=== PATIENT | female | born 2000 | race Caucasian/White ===

== ENCOUNTER 2024-01-19 13:58 | Emergency (ER) | payer OTHER, SELFPAY ==
[2024-01-19 14:01] VITALS: BP 120/86
--- NOTE | 2024-01-19 14:39 | ED.GENMED ---
History of Present Illness
General
Chief Complaint: Abdominal Symptoms
Source: patient, records and family
Exam Limitations: none
Time Seen by Provider: 01/19/24 14:20
Nursing documentation reviewed up to this point in time: agreed with
Travel History
Have you had any contact with someone who has COVID-19?: No
Do you have any symptoms of coronavirus? Fever > 100 degrees, chills, cough, shortness of breath, sore throat, loss of taste or smell, muscle aches, or headache?: No
History of Present Illness
History of Present Illness:
23-year-old female presents with nausea vomiting without last evening has some vodka, woke up on the over dry heaving and vomited every 10 minutes since then, similar episodes in the past does not get much relief with Zofran usually gets Compazine
minimal abdominal cramping no blood in her vomit, denies has had ovarian cyst before, smokes marijuana states this does not cause any trouble for her
Past History
Past History
ED Past Medical History: Psychiatric (A/D), Other (Peptic ulcer, eating disorder) and Other (PCOS)
ED Past Surgical History: Gynecological (Ovarian cyst)
Social History
Tobacco: Vaping
Alcohol: Occasional
Drug: Marijuana
Personal: Single
Living: other (College)
Employment: Employed
Review of Systems
Review of Systems
All Other Systems: Not applicable
Constitutional: Denies fever or fatigue
Respiratory: Reports no symptoms
Cardiac: Reports no symptoms
ABD/GI: Reports abdominal pain, nausea and vomiting
Phy Exam
Physical Exam
Physical Exam:
Physical Exam
General: 23female vomiting
Neck: Dry lips
Heart: Tachycardia
Lungs: no acute respiratory distress. clear bilaterally
Abdomen: Soft mild epigastric tenderness no guarding or
Neuro: alert and oriented. no focal neurological deficits
Skin: no rash
Psychiatric: well kept. interactive and cooperative
Extremities: no edema.
Course
Orders/Labs/Results
Orders:
Orders
01/19/24 14:29
Diphenhydramine [Benadryl] 25 mg IV NOW STA
Pantoprazole [Protonix IV] 40 mg IV NOW STA
Prochlorperazine [Compazine] 10 mg IV NOW STA
Test Result ONCE
01/19/24 14:30
0.9% Sodium Chloride 1000 ml [Nss] 2,000 ml IV BOLUS
01/19/24 14:31
Diphenhydramine [Benadryl] 50 mg .ROUTE .STK-MED ONE
Pantoprazole [Protonix IV] 40 mg .ROUTE .STK-MED ONE
Prochlorperazine [Compazine] 10 mg .ROUTE .STK-MED ONE
01/19/24 14:42
Add On- LAB Urgent
Tests Added?: lipase
01/19/24 14:48
Complete Blood Count/With Diff Urgent
Comprehensive Metabolic Panel Urgent
HCG, Serum Qualitative Screen Urgent
Lipase Urgent
Comment: add on
Abnormal Lab Results
01/19/24
14:48
WBC 18.4 H 10^3/uL
(4.8-10.8)
MCH 32.1 H pg
(27.0-31.0)
Abs Immat Gran (auto) 0.2 H 10^3/uL
(0-0.05)
Absolute Neuts (auto) 17.0 H 10^3/uL
(1.4-6.5)
Absolute Lymphs (auto) 0.8 L 10^3/uL
(1.2-3.4)
Immature Gran % 0.9 H %
(0-0.5)
Neutrophils % 92.3 H %
(42.2-75.2)
Lymphocytes % 4.2 L %
(20.5-51.1)
Creatinine 0.5 L mg/dL
(0.6-1.0)
Glucose 108 H mg/dl
(70-99)
Calcium 10.6 H mg/dl
(8.4-10.2)
Albumin 5.2 H g/dl
(3.5-5.0)
Lipase 18 L U/L
(23-300)
01/19/24 14:48
01/19/24 14:48
Vital Signs
Initial and Last Documented VS:
Initial Vital Signs
Pulse Resp BP Pulse Ox
62 18 120/86 98
01/19/24 14:01 01/19/24 14:01 01/19/24 14:01 01/19/24 14:01
Last Documented Vital Signs
Pulse Resp BP Pulse Ox
62 18 120/86 98
01/19/24 14:01 01/19/24 14:01 01/19/24 14:01 01/19/24 14:01
MDM/Problems Addressed
Differential Diagnosis Includes:
Dehydration intractable nausea vomiting gastritis doubt pancreatitis
MDM/Problems Addressed:
Nausea vomiting
Chronic conditions affecting care:
Prior nausea vomiting after alcohol
Chronic conditions affecting care: Psychiatric illness
Acute Exacerbation and/or Progression of Chronic Illness:
Nausea vomiting after
Acute Exacerbation and/or Progression of Chronic Illness: Psychiatric illness
*Critical Care Note
Total Time (30-74mins, 75-104mins- exclusive of procedures): Not Applicable
Update Note
Update Note:
Update white count noted electrolytes noted leukocytosis could be reactive, do not strongly suspect appendicitis will perform serial abdominal exams
4:15 PM abdomen soft nontender she is tolerating art nereida
ED Attending Note
-
Portions of this chart may have been created with voice recognition software.� Occasional wrong word or��sound alike� substitutions may have occurred due to the inherent limitations of voice recognition software.
Discharge Plan
Departure
Patient Disposition: Home (Routine Discharge)
Date of Disposition: 01/19/24
Time of Disposition: 16:20
Patient with high blood pressure during this ER visit?: No
Condition: Good
Discharge Problem:
Vomiting
Instructions: Nausea and Vomiting, Adult (DC)
Prescriptions:
No Action
glycopyrrolate 1 mg Tablet
1 mg PO HS
sertraline 100 mg Tablet
100 mg PO HS
Theragen Tablet
1 tab PO DAILY
ascorbic acid (vitamin C) [Vitamin C] 500 mg Tablet
500 mg PO DAILY
ibuprofen [Motrin] 400 mg Tablet
400 mg PO Q6HPRN PRN (Reason: mild pain)
dextroamphetamine-amphetamine [Adderall XR] 15 mg Capsule,Extended Release 24hr
15 mg PO DAILY
norethindrone-e.estradiol-iron [Blisovi 24 Fe] 1 mg-20 mcg (24)/75 mg (4) Tablet
1 tab PO DAILY
Medical Marijuana
1 - 2 puff inhalation TIDPRN PRN (Reason: anxiety/stress)
ondansetron 8 mg tablet,disintegrating
8 mg PO TID PRN (Reason: nausea and vomiting) Qty: 20 0RF
Referrals:
Sangeeta Peters PA-C [Family Provider] -
Activity Restrictions/Additional Instructions:
Limit your alcohol use, Compazine as needed for nausea vomiting
Return to the ER if increased pain uncontrollable vomiting fevers you lose your appetite or any other concerns
Interventions
Interventions:
*Risk Screen - Suicide Last Done: 01/19/24 14:36
*General Assessment Last Done: 01/19/24 14:01
*Neglect/Abuse Screening Last Done: 01/19/24 14:36
ED- Fall Risk Assessment Last Done: 01/19/24 14:36
*ED COVID-19 Vaccine History Last Done: 01/19/24 14:01
JX-Enxukh-Yssohouxmf Assessment Last Done: 01/19/24 14:36
[2024-01-19] MEDS: NSS 2000 IV (14:41)
[2024-01-19] MEDS: PROTONIX IV 40 MG IV (14:42)
[2024-01-19] MEDS: BENADRYL 25 MG IV (14:42)
[2024-01-19] MEDS: COMPAZINE 10 MG IV (14:42)
[2024-01-19 15:04] LABS: % Basophils 0.4 % (0-2); % Eosinophils 0.1 % (0-6); % Immature Granulocytes 0.9 % (0-0.5); % Lymphocytes 4.2 % (20.5-51.1); % Monocytes 2.1 % (1.7-9.3); % Neutrophils 92.3 % (42.2-75.2); Absolute Basophils 0.1 10^3/uL (0-0.2); Absolute Immature Granulocytes 0.2 10^3/uL (0-0.05); Absolute Lymphocytes 0.8 10^3/uL (1.2-3.4); Absolute Monocytes 0.4 10^3/uL (0.1-0.6); Hematocrit 39.2 % (37.0-47.0); Mean Corp Hgb Conc. 35.7 g/dL (33.0-37.0); Mean Corpuscular Hgb 32.1 pg (27.0-31.0); Mean Corpuscular Volume 89.9 fL (81.0-99.0); Mean Platelet Volume 10.1 fL (7.4-10.4); Nucleated Red Blood Cells % 0 %; Platelet Count 255 10^3/uL (130-400); Red Blood Cell Count 4.36 10^6/uL (4.20-5.40); Red Cell Dist. Width 12.8 % (11.5-14.5); White Blood Cell Count 18.4 10^3/uL (4.8-10.8)
[2024-01-19 15:16] LABS: HCG, Serum Qualitative Screen Negative
[2024-01-19 15:21] LABS: ALT (SGPT) 22 U/L (0-35); AST (SGOT) 33 U/L (14-36); Albumin 5.2 g/dl (3.5-5.0); Alkaline Phosphatase 97 U/L (38-126); Blood Urea Nitrogen 15 mg/dl (7-17); Calcium 10.6 mg/dl (8.4-10.2); Carbon Dioxide 22 mmol/L (22-30); Chloride 104 mmol/L (98-107); Glucose 108 mg/dl (70-99); Potassium 4.1 mmol/L (3.5-5.1); Sodium 140 mmol/L (135-145); Total Bilirubin 0.6 mg/dl (0.2-1.3); Total Protein 8.2 g/dl (6.3-8.2); eGFR > 60.00
[2024-01-19 16:17] LABS: Lipase 18 U/L (23-300)
[2024-01-19 16:30] VITALS: BP 112/71
== END 2024-01-19 16:38 | disposition home or self-care (01) ==
LOC: EMR 13:58
PROVIDERS: EMERGENCY PHYSICIAN Emergency Medicine; FAMILY PHYSICIAN Physician Assistant Medical
DX: R11.2 Nausea with vomiting, unspecified (principal); Z87.11 Personal history of peptic ulcer disease; F17.290 Nicotine dependence, other tobacco product, uncomplicated
CPT/HCPCS: 99283; 96374; 96375; 96361; 80053; 83690; 84703; 85025

== ENCOUNTER 2024-04-24 08:50 | Emergency (ER) | payer OTHER, SELFPAY ==
[2024-04-24 08:52] VITALS: BP 128/82
--- NOTE | 2024-04-24 09:31 | ED.GENMED ---
History of Present Illness
General
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
Time Seen by Provider: 04/24/24 09:12
Travel History
Have you had any contact with someone who has COVID-19?: No
Do you have any symptoms of coronavirus? Fever > 100 degrees, chills, cough, shortness of breath, sore throat, loss of taste or smell, muscle aches, or headache?: No
History of Present Illness
History of Present Illness:
23 yo female presents to the Emergency Department for evaluation of pelvic pain and vaginal bleeding beginning this AM. She states she attempted to feel her IUD strings and they felt 'different'. Bleeding is less than typical menstrual period. IUD
(Mirena) has been in place for 18 months. Concerned for IUD migration. Denies vaginal discharge, denies concern for STI. No fevers or chills.
Past History
Past History
ED Past Medical History: Psychiatric (A/D), Other (Peptic ulcer, eating disorder) and Other (PCOS)
ED Past Surgical History: Gynecological (Ovarian cyst)
Social History
Tobacco: Vaping
Alcohol: Occasional
Drug: Marijuana
Personal: Single
Living: other (College)
Employment: Employed
Review of Systems
Review of Systems
Allergies reviewed?: Yes
All Other Systems: ROS reviewed and negative except as documented in HPI and ROS
Phy Exam
Physical Exam
Physical Exam:
GEN: Well appearing, NAD, WDWN
HEENT: Oral mucosa moist, no scleral icterus
Cardiac: Regular rate
Lung: No respiratory distress, no tachypnea
: Exam performed w/ JENY Solis at bedside. Speculum exam reveals visible IUD strings. No CMT. Brown/black cervical discharge noted, no chava bleeding
MSK: No gross deformity or injuries
Skin: Good color, no pallor or jaundice, no rashes
Neuro: AO x3, moves all extremities freely
Psych: Calm, cooperative
Course
Orders/Labs/Results
Orders:
Orders
04/24/24 09:30
US Pelvis Only (non-obstetric) Urgent
Comment:
Reason For Exam: pelvic pain, vaginal bleeding, possible IUD prob
04/24/24 09:36
Chlamydia/GC by PCR Urgent
LOGAN Source: Endo-Cervical
Specimen Description:
Source:: ENDOCERVICAL
Date Specimen was Collected: 04/24/24
Time Specimen was Collected: 09:33
Vital Signs
Initial and Last Documented VS:
Initial Vital Signs
Temp Pulse Resp BP Pulse Ox
98.1 F 95 16 128/82 98
04/24/24 08:52 04/24/24 08:52 04/24/24 08:52 04/24/24 08:52 04/24/24 08:52
Last Documented Vital Signs
Temp Pulse Resp BP Pulse Ox
98.1 F 95 16 128/82 98
04/24/24 08:52 04/24/24 08:52 04/24/24 08:52 04/24/24 08:52 04/24/24 08:52
MDM/Problems Addressed
MDM/Problems Addressed:
Pelvic exam without evidence of significant bleeding or protruding IUD, f/u US shows no endometrial penetration of IUD. Likely DUB, recommend route sales trainee f/u
*Critical Care Note
Total Time (30-74mins, 75-104mins- exclusive of procedures): Not Applicable
ED Attending Note
-
Portions of this chart may have been created with voice recognition software.� Occasional wrong word or��sound alike� substitutions may have occurred due to the inherent limitations of voice recognition software.
Discharge Plan
Departure
Patient Disposition: Home (Routine Discharge)
Date of Disposition: 04/24/24
Time of Disposition: 11:11
Patient with high blood pressure during this ER visit?: No
Discharge Problem:
DUB (dysfunctional uterine bleeding)
Instructions: Bleeding Between Periods
Prescriptions:
No Action
glycopyrrolate 1 mg Tablet
1 mg PO HS
sertraline 100 mg Tablet
100 mg PO HS
Theragen Tablet
1 tab PO DAILY
ascorbic acid (vitamin C) [Vitamin C] 500 mg Tablet
500 mg PO DAILY
ibuprofen [Motrin] 400 mg Tablet
400 mg PO Q6HPRN PRN (Reason: mild pain)
dextroamphetamine-amphetamine [Adderall XR] 15 mg Capsule,Extended Release 24hr
15 mg PO DAILY
norethindrone-e.estradiol-iron [Blisovi 24 Fe] 1 mg-20 mcg (24)/75 mg (4) Tablet
1 tab PO DAILY
Medical Marijuana
1 - 2 puff inhalation TIDPRN PRN (Reason: anxiety/stress)
ondansetron 8 mg tablet,disintegrating
8 mg PO TID PRN (Reason: nausea and vomiting) Qty: 20 0RF
prochlorperazine maleate [Compazine] 5 mg tablet
5 mg PO QID PRN (Reason: nausea and vomiting) Qty: 20 0RF
Referrals:
João Bull, DO [Family Provider] -
Activity Restrictions/Additional Instructions:
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
Interventions
Interventions:
*Risk Screen - Suicide Last Done: 04/24/24 09:34
*General Assessment Last Done: 04/24/24 09:34
*Neglect/Abuse Screening Last Done: 04/24/24 09:34
*ED COVID-19 Vaccine History Last Done: 04/24/24 08:52
Discharge Date and Time
Print Language: CITIZEN [place]
[2024-04-24 09:35] VITALS: BMI 23.0
== END 2024-04-24 11:11 | disposition home or self-care (01) ==
LOC: EMR 08:50
PROVIDERS: EMERGENCY PHYSICIAN Emergency Medicine; FAMILY PHYSICIAN Family Medicine
DX: N93.8 Other specified abnormal uterine and vaginal bleeding (principal); F17.290 Nicotine dependence, other tobacco product, uncomplicated; Z97.5 Presence of (intrauterine) contraceptive device
CPT/HCPCS: 99284; 76856; 87491; 87591